=== PATIENT | female | born 1985 | race Caucasian/White ===

== ENCOUNTER → 2019-06-09 | Outpatient (CLI) | payer OTHER ==
--- NOTE | 2019-06-10 07:32 | REP ---
Obstetric ultrasound, stat request for gestational dating : There is an intrauterine gestational sac with a pole and yolk sac. The heart rate is 126 beats per minute. The pole crown-rump length is 0.9 cm corresponding to a gestational age of 6 weeks 6 days. The SHAKA is 01/27/2021. The SHAKA by LMP is 7 weeks 0 days. There is a small subchorionic hematoma measuring 2.4 x 0.9 x 1.5 cm. There is a hypoechoic nodule like structure to the left of the uterus measuring 3.2 x 3.5 x 3.2 cm, possibly a fibroid. The left ovary is unremarkable. The right ovary is not visualized. Electronically Signed by Cedric Jackson MD 06/10/2019 07:24 A
== END ==
LOC: M RAD 16:18
PROVIDERS: ATTEND Physician Assistant
DX: Z32.01 Encounter for pregnancy test, result positive (principal); Z3A.01 Less than 8 weeks gestation of pregnancy; O20.8 Other hemorrhage in early pregnancy